=== PATIENT | male | born 1990 | race Caucasian/White ===

== ENCOUNTER 2016-09-08 10:35 | Emergency (ER) | payer BC ==
[2012-02-12 13:37] VITALS: BMI 20.1
== END 2016-09-08 12:55 | disposition home or self-care (01) ==
LOC: D.ER 10:35
DX: S20.219A Contusion of unspecified front wall of thorax, initial encounter (principal); X58.XXXA Exposure to other specified factors, initial encounter; Y93.17 Activity, water skiing and wake boarding; Y92.828 Other wilderness area as the place of occurrence of the external cause

== ENCOUNTER → 2017-12-30 | Emergency (ER) | payer BC ==
[2012-02-12 13:37] VITALS: BMI 20.1
== END | disposition home or self-care (01) ==
LOC: D.ER 00:40
DX: R10.9 Unspecified abdominal pain (principal); R11.2 Nausea with vomiting, unspecified